=== PATIENT | female | born 1955 | race Caucasian/White ===

== ENCOUNTER → 2019-07-25 | Outpatient (REF) | payer OTHER | LOC: M LAB LCGH 09:34 | PROVIDERS: ATTEND Physician Assistant | DX: L57.0 Actinic keratosis (principal) ==

== ENCOUNTER → 2024-08-20 | Outpatient (REF) | payer OTHER | LOC: M SFHCDERM 17:41 | PROVIDERS: ATTEND Physician Assistant | DX: B07.9 Viral wart, unspecified (principal) ==